=== PATIENT | female | born 2000 | race African-American/Black ===

== ENCOUNTER 2020-12-19 09:51 | Emergency (ER) | payer SELFPAY ==
[~2020-12-19] VITALS: Ht 167.6 cm; Wt 70.0 kg
[2020-12-19] MEDS ORDERED: METHOCARBAMOL 500MG TABLET PO ONE (11:15)
[2020-12-19] MEDS ORDERED: ACETAMINOPHEN 325MG TABLET PO ONE (11:15)
[2020-12-19 11:29] LABS: BASOPHILS % 0.6 % (0.0-2.0); EOSINOPHILS % 0.9 % (0.0-5.0); HEMATOCRIT. 41.6 % (36.0-48.0); HEMOGLOBIN. 13.9 g/dL (12.0-16.0); LYMPHOCYTES % 28.1 % (20.0-50.0); MEAN CORPUSCULAR HEMOGLOBIN 29.9 pg (28.0-32.0); MEAN CORPUSCULAR VOLUME 89.4 fL (81.0-99.0); MONOCYTES % 8.1 % (2.0-8.0); NEUTROPHILS % 62.3 % (40.0-76.0); PLATELET 224 x1000/uL (130-400); RED BLOOD CELL COUNT 4.65 mill/uL (4.2-5.4); RED CELL DISTRIBUTION WIDTH 12.7 % (11.6-14.6)
[2020-12-19 11:36] LABS: CHLORIDE 106 mEq/L (98-107)
[2020-12-19 11:39] LABS: HCG SCREEN NEGATIVE
[2020-12-19 13:38] LABS: CLARITY URINE CLOUDY (CLEAR); COLOR URINE YELLOW (YELLOW); KETONES URINE NEGATIVE (NEGATIVE); LEUKOCYTE ESTERASE URINE 2+ (NEGATIVE); NITRITE URINE NEGATIVE (NEGATIVE); OCCULT BLOOD URINE NEGATIVE (NEGATIVE); PH URINE 6.5 (4.5-8.0); PROTEIN URINE NEGATIVE (NEGATIVE); SPECIFIC GRAVITY URINE 1.013 (1.005-1.030); UROBILINOGEN URINE 0.2 E.U./dL (0.2-1.0)
[2020-12-19] MEDS ORDERED: DOXYCYCLINE HYCLATE 100MG CAPSULE PO ONE (14:30)
[2020-12-19] MEDS ORDERED: MORPHINE SULFATE 4 MG/ML CPJ (NOT FOR IM USE) IV ONE (14:30)
[2020-12-19] MEDS ORDERED: CEFTRIAXONE SODIUM 250 MG/VIAL IM ONE (14:30)
[2020-12-19] MEDS ORDERED: METRONIDAZOLE 250MG TABLET PO ONE (14:30)
[2020-12-19] MEDS ORDERED: METR500T MT (14:31)
[2020-12-19] MEDS ORDERED: DOXY150T9 MT (14:31)
[2020-12-19 15:55] VITALS: BP 108/51
[2020-12-20] MEDS ORDERED: ONDA4TAB5 PO (11:29)
== END 2020-12-19 15:56 | disposition home or self-care (01) ==
LOC: ER 10:03
DX: A59.9 Trichomoniasis, unspecified (principal)
CPT/HCPCS: 36415; 80053; 81003; 81025; 84703; 85025; 96372; 99285; J0696; Z7610

== ENCOUNTER 2020-12-20 10:50 | Emergency (ER) | payer SELFPAY ==
[~2020-12-20] VITALS: Ht 172.7 cm; Wt 61.0 kg
[~2020-12-20 10:50] MED LIST: DOXY150T9 MT; METR500T MT
[2020-12-20] MEDS ORDERED: ONDA4TAB5 PO (11:29)
[2020-12-20 11:39] VITALS: BP 118/83
== END 2020-12-20 11:40 | disposition home or self-care (01) ==
LOC: ER 10:50
DX: R10.31 Right lower quadrant pain (principal); A59.9 Trichomoniasis, unspecified; F12.10 Cannabis abuse, uncomplicated
CPT/HCPCS: 99283

== ENCOUNTER 2020-12-21 10:23 | Inpatient (IN) | payer SELFPAY ==
[~2020-12-21] VITALS: Ht 165.1 cm; Wt 72.6 kg
[~2020-12-21 10:23] MED LIST changes: +ONDA4TAB5 PO
[2020-12-21] MEDS ORDERED: KETOROLAC 30MG/ML VIAL IV STA (11:27)
[2020-12-21] MEDS ORDERED: SODIUM CHLORIDE 0.9% 1,000 ML IV ONE (11:30)
[2020-12-21] MEDS ORDERED: CEFTRIAXONE SODIUM 500 MG/VIAL IM ONE (11:30)
[2020-12-21 12:07] LABS: BASOPHILS % 0.4 % (0.0-2.0); EOSINOPHILS % 0.4 % (0.0-5.0); HEMOGLOBIN. 13.5 g/dL (12.0-16.0); MEAN CORPUSCULAR HEMOGLOBIN 29.3 pg (28.0-32.0); MEAN CORPUSCULAR VOLUME 88.9 fL (81.0-99.0); MEAN PLATELET VOLUME 8.9 fl (7.4-10.4); MONOCYTES % 6.7 % (2.0-8.0); NEUTROPHILS % 62.5 % (40.0-76.0); PLATELET 248 x1000/uL (130-400); RED BLOOD CELL COUNT 4.61 mill/uL (4.2-5.4); RED CELL DISTRIBUTION WIDTH 12.7 % (11.6-14.6)
[2020-12-21] MEDS ORDERED: METRONIDAZOLE 500MG TABLET PO ONE (12:15)
[2020-12-21 12:25] LABS: CHLORIDE 103 mEq/L (98-107)
[2020-12-21 12:43] LABS: HCG SCREEN NEGATIVE
[2020-12-21] MEDS ORDERED: DOXYCYCLINE HYCLATE 100 MG/VIAL IV ONE (12:45)
[2020-12-21] MEDS ORDERED: DOXYCYCLINE 100MG in DEXTROSE 5% WATER 100ML IV SCH (13:00)
[2020-12-21] MEDS ORDERED: POTASSIUM CHLORIDE 20MEQ TABLET SR PO ONE (13:15)
[2020-12-21] MEDS ORDERED: ONDANSETRON HCL 4MG/2ML INJ IV STA (15:32)
[2020-12-21] MEDS ORDERED: MORPHINE SULFATE 4 MG/ML CPJ (NOT FOR IM USE) IV STA (15:32)
[2020-12-21 16:36] LABS: CLARITY URINE CLEAR (CLEAR); COLOR URINE YELLOW (YELLOW); KETONES URINE TRACE (NEGATIVE); LEUKOCYTE ESTERASE URINE NEGATIVE (NEGATIVE); NITRITE URINE NEGATIVE (NEGATIVE); OCCULT BLOOD URINE NEGATIVE (NEGATIVE); PH URINE 6.5 (4.5-8.0); PROTEIN URINE NEGATIVE (NEGATIVE); SPECIFIC GRAVITY URINE 1.009 (1.005-1.030); UROBILINOGEN URINE 0.2 E.U./dL (0.2-1.0)
[2020-12-21] MEDS ORDERED: CEFAZOLIN 2000MG PREMIX 50 ML IV NR (17:15)
[2020-12-21] MEDS ORDERED: DEXT 5%/LACTATED RINGERS 1,000 ML IV SCH (17:15)
[2020-12-21 18:05] LABS: INR 1.1; PARTIAL THROMBOPLASTIN TIME 29.3 sec (23.4-31.0); PROTHROMBIN TIME 11.6 sec (9.6-11.0)
[2020-12-21] MEDS ORDERED: MORPHINE SULFATE/PF 1MG/ML 10ML AMP ONE (20:45)
[2020-12-21] MEDS ORDERED: ROCURONIUM BROMIDE 10MG/ML VIAL 5ML IV ONE (20:48)
[2020-12-21] MEDS ORDERED: GLYCOPYRROLATE 0.2 MG/ML 2ML VIAL ONE ×2 (21:01→21:50)
[2020-12-21] MEDS ORDERED: DEXAMETHASONE 4MG/ML 1ML VIAL ONE (21:07)
[2020-12-21] MEDS ORDERED: ONDANSETRON HCL 4MG/2ML INJ ONE (21:08)
[2020-12-21] MEDS ORDERED: NEOSTIGMINE METHYLSULFATE 1MG/ML 10 ML VIAL ONE (21:50)
[2020-12-21] MEDS ORDERED: LABETALOL 5MG/ML SYR 20 MG/4 ML SYRINGE IV PRN (22:00)
[2020-12-21] MEDS ORDERED: MEPERIDINE HCL/PF 25MG/ML CPJ IV PRN (22:00)
[2020-12-21] MEDS ORDERED: ONDANSETRON HCL 4MG/2ML INJ IV PRN ×2 (22:00→22:15)
[2020-12-21] MEDS ORDERED: HYDROMORPHONE HCL/PF 2MG/ML CPJ IV PRN (22:00)
[2020-12-21] MEDS ORDERED: NALOXONE HCL 0.4 MG/ML 1ML VIAL ONE (22:07)
[2020-12-21] MEDS ORDERED: IBUPROFEN 400MG TABLET PO PRN (22:15)
[2020-12-21] MEDS ORDERED: DIPHENHYDRAMINE 25MG CAPSULE PO PRN (22:15)
[2020-12-21] MEDS ORDERED: IBUPROFEN 800MG TABLET PO PRN (22:15)
[2020-12-21] MEDS ORDERED: KETOROLAC 30MG/ML VIAL IM ONE (22:15)
[2020-12-21] MEDS ORDERED: HYDROCODONE/ACETAMINOPHEN 5/325MG TABLET PO PRN (22:15)
[2020-12-21] MEDS ORDERED: BISACODYL 10MG SUPP PR PRN (23:00)
[2020-12-22] VITALS: BP 111/53
[2020-12-22] MEDS: DEXT 5%/LACTATED RINGERS 1,000 ML IV SCH ×3 (01:15→22:15)
[2020-12-22 04:00] VITALS: BP 100/52
[2020-12-22] MEDS ORDERED: ONDANSETRON HCL 4MG/2ML INJ IV PRN (04:30)
[2020-12-22 06:30] LABS: *AMPHETAMINES SCREEN URINE NEGATIVE (NEGATIVE)
[2020-12-22 06:31] LABS: *BARBITURATES SCREEN URINE NEGATIVE (NEGATIVE); *BENZODIAZEPINES SCREEN URINE NEGATIVE (NEGATIVE); *COCAINE SCREEN URINE NEGATIVE (NEGATIVE)
[2020-12-22 06:33] LABS: METHADONE URINE SCREEN NEGATIVE (NEGATIVE); PHENCYCLIDINE URINE SCREEN NEGATIVE (NEGATIVE)
[2020-12-22 06:35] LABS: CANNABINOID URINE SCREEN PRESUMTIVE POSITIVE (NEGATIVE); OPIATES URINE SCREEN PRESUMTIVE POSITIVE (NEGATIVE)
[2020-12-22 06:47] LABS: HEMATOCRIT. 33.7 % (36.0-48.0); MEAN CORPUSCULAR HEMOGLOBIN 29.4 pg (28.0-32.0); MEAN CORPUSCULAR VOLUME 89.9 fL (81.0-99.0); MEAN PLATELET VOLUME 8.9 fl (7.4-10.4); PLATELET 197 x1000/uL (130-400); RED BLOOD CELL COUNT 3.75 mill/uL (4.2-5.4); RED CELL DISTRIBUTION WIDTH 12.5 % (11.6-14.6)
[2020-12-22 08:00] VITALS: BP 100/64
[2020-12-22] MEDS ORDERED: POTASSIUM CHLORIDE INJ 40 MEQ in DEXT 5% WATER 500 ML IV SCH (09:00)
[2020-12-22] MEDS: SIMETHICONE 80MG TABLET CHEW PO SCH ×4 (09:35→21:17)
[2020-12-22] MEDS: METOCLOPRAMIDE HCL 10MG/2ML VIAL IV SCH ×3 (12:24→23:49)
[2020-12-22 16:00] VITALS: BP 101/51
[2020-12-22 17:20] LABS: PLATELET ESTIMATE NORMAL
[2020-12-22 20:00] VITALS: BP 85/48
[2020-12-22 20:30] VITALS: BP 92/60
[2020-12-22] MEDS: DOCUSATE SODIUM 100MG CAPSULE PO SCH ×2 (20:58→21:18)
[2020-12-23] VITALS: BP 94/56
[2020-12-23] MEDS: METOCLOPRAMIDE HCL 10MG/2ML VIAL IV SCH ×4 (05:36→23:00)
[2020-12-23 07:37] LABS: CHLORIDE 108 mEq/L (98-107)
[2020-12-23 08:00] VITALS: BP 95/52
[2020-12-23] MEDS: SIMETHICONE 80MG TABLET CHEW PO SCH ×4 (08:55→21:09)
[2020-12-23] MEDS ORDERED: POTASSIUM CHLORIDE 20MEQ TABLET SR PO NR (09:00)
[2020-12-23] MEDS ORDERED: METRONIDAZOLE 500MG TABLET PO SCH (09:00)
[2020-12-23 09:06] LABS: NEISSERIA GONORRHOEAE NAA Negative (Negative)
[2020-12-23] MEDS: IBUPROFEN 600MG TABLET PO PRN (10:58)
[2020-12-23 12:00] VITALS: BP 95/59
[2020-12-23 16:00] VITALS: BP 80/45
[2020-12-23 20:00] VITALS: BP 95/55
[2020-12-23] MEDS: DOCUSATE SODIUM 100MG CAPSULE PO SCH ×2 (20:58→21:09)
[2020-12-24] VITALS: BP 90/44
[2020-12-24 04:00] VITALS: BP 92/45
[2020-12-24] MEDS: METOCLOPRAMIDE HCL 10MG/2ML VIAL IV SCH ×2 (05:37→13:21)
[2020-12-24 08:00] VITALS: BP 96/62
[2020-12-24] MEDS: SIMETHICONE 80MG TABLET CHEW PO SCH ×2 (09:15→13:22)
[2020-12-24] MEDS: IBUPROFEN 600MG TABLET PO PRN (09:15)
[2020-12-24 12:00] VITALS: BP 97/55
[2020-12-24 16:00] VITALS: BP 93/53
[2020-12-24 17:11] VITALS: BP 97/62
== END 2020-12-24 17:20 | disposition home or self-care (01) | DRG 513 ==
LOC: ER 12:19 → 6EST 15:36 → SUPCPDRO 17:07 → ENRESERV 19:49 → ER 20:46
PROVIDERS: ADMIT Specialist; ATTEND Specialist
PROC: 0UB00ZX Excision of Right Ovary, Open Approach, Diagnostic (ICD-10-PCS; principal; 2020-12-21)
PROC: 0UB00ZZ Excision of Right Ovary, Open Approach (ICD-10-PCS; 2020-12-21)
PROC: 0U900ZZ Drainage of Right Ovary, Open Approach (ICD-10-PCS; 2020-12-21)
DX: N83.511 Torsion of right ovary and ovarian pedicle (principal); A59.9 Trichomoniasis, unspecified; E87.6 Hypokalemia; B00.9 Herpesviral infection, unspecified; F12.10 Cannabis abuse, uncomplicated; N83.201 Unspecified ovarian cyst, right side; Z20.822 Contact with and (suspected) exposure to COVID-19; Z79.899 Other long term (current) drug therapy
CPT/HCPCS: 36415; 76830; 76856; 80048; 80053; 80305; 81003; 84703; 85025; 86592; 86762; 86850; 86900; 86920; 87210; 87426; 87491; 87591; 88108; 88304; 88305; 88312; 99285; J0696; J1100; J1885; J2270; J2274; J2310; J2405; J2710; J2765; J3480; J3490; J7030; J7060; J7121

== ENCOUNTER 2020-12-31 13:30 | Emergency (ER) | payer MEDICAID ==
[~2020-12-31] VITALS: Ht 172.7 cm; Wt 73.0 kg
[2020-12-31 13:38] VITALS: BP 92/48
== END 2020-12-31 16:11 | disposition home or self-care (01) ==
LOC: ER 13:30
DX: Z48.01 Encounter for change or removal of surgical wound dressing (principal); Z90.710 Acquired absence of both cervix and uterus
CPT/HCPCS: 99282

== ENCOUNTER 2021-06-25 20:02 | Emergency (ER) | payer MEDICAID ==
[~2021-06-25] VITALS: Ht 172.7 cm; Wt 79.0 kg
[2021-06-25 20:16] VITALS: BP 109/53
[2021-06-25 21:30] LABS: CLARITY URINE CLEAR (CLEAR); COLOR URINE YELLOW (YELLOW); KETONES URINE 3+ (NEGATIVE); LEUKOCYTE ESTERASE URINE NEGATIVE (NEGATIVE); NITRITE URINE NEGATIVE (NEGATIVE); OCCULT BLOOD URINE NEGATIVE (NEGATIVE); PROTEIN URINE TRACE (NEGATIVE); SPECIFIC GRAVITY URINE 1.031 (1.005-1.030)
[2021-06-25 21:33] LABS: UCG SCREEN NEGATIVE
[2021-06-25] MEDS ORDERED: LORAZEPAM 0.5MG TABLET PO ONE (22:00)
== END 2021-06-25 22:27 | disposition home or self-care (01) ==
LOC: ER 20:02
DX: R00.2 Palpitations (principal); F41.9 Anxiety disorder, unspecified; F17.210 Nicotine dependence, cigarettes, uncomplicated
CPT/HCPCS: 81003; 81025; 93005; 99284

== ENCOUNTER 2021-08-13 21:03 | Emergency (ER) | payer MEDICAID ==
[~2021-08-13] VITALS: Ht 172.7 cm; Wt 79.1 kg
[2021-08-13 21:13] VITALS: BP 106/57
[2021-08-13 23:00] LABS: BASOPHILS % 0.6 % (0.0-2.0); EOSINOPHILS % 1.3 % (0.0-5.0); HEMOGLOBIN. 12.6 g/dL (12.0-16.0); LYMPHOCYTES % 34.6 % (20.0-50.0); MEAN CORPUSCULAR HEMOGLOBIN 29.6 pg (28.0-32.0); MEAN CORPUSCULAR VOLUME 91.9 fL (81.0-99.0); MEAN PLATELET VOLUME 8.7 fl (7.4-10.4); MONOCYTES % 13.5 % (2.0-8.0); PLATELET 206 x1000/uL (130-400); RED BLOOD CELL COUNT 4.25 mill/uL (4.2-5.4); RED CELL DISTRIBUTION WIDTH 13.6 % (11.6-14.6)
[2021-08-13 23:06] LABS: CHLORIDE 105 mEq/L (98-107)
[2021-08-13 23:13] LABS: HCG SCREEN NEGATIVE
[2021-08-15] MEDS ORDERED: LORA-249 MT (21:32)
== END 2021-08-14 01:08 | disposition left against medical advice (07) ==
LOC: ER 21:03
DX: N93.9 Abnormal uterine and vaginal bleeding, unspecified (principal); F12.10 Cannabis abuse, uncomplicated; Z98.890 Other specified postprocedural states
CPT/HCPCS: 36415; 76830; 76856; 80053; 84703; 85025; 99284

== ENCOUNTER 2021-08-15 16:26 | Emergency (ER) | payer MEDICAID ==
[~2021-08-15] VITALS: Ht 172.7 cm; Wt 76.0 kg
[2021-08-15 16:36] VITALS: BP 106/49
[2021-08-15 19:47] LABS: CLARITY URINE CLEAR (CLEAR); COLOR URINE YELLOW (YELLOW); KETONES URINE 1+ (NEGATIVE); LEUKOCYTE ESTERASE URINE NEGATIVE (NEGATIVE); NITRITE URINE NEGATIVE (NEGATIVE); OCCULT BLOOD URINE 1+ (NEGATIVE); PH URINE 6.5 (4.5-8.0); PROTEIN URINE NEGATIVE (NEGATIVE); SPECIFIC GRAVITY URINE 1.017 (1.005-1.030); UROBILINOGEN URINE 0.2 E.U./dL (0.2-1.0)
[2021-08-15 20:12] LABS: BASOPHILS % 0.4 % (0.0-2.0); EOSINOPHILS % 1.7 % (0.0-5.0); HEMATOCRIT. 39.9 % (36.0-48.0); HEMOGLOBIN. 13.2 g/dL (12.0-16.0); LYMPHOCYTES % 34.8 % (20.0-50.0); MEAN CORPUSCULAR HEMOGLOBIN 30.2 pg (28.0-32.0); MEAN CORPUSCULAR VOLUME 91.1 fL (81.0-99.0); MEAN PLATELET VOLUME 8.7 fl (7.4-10.4); MONOCYTES % 9.9 % (2.0-8.0); NEUTROPHILS % 53.2 % (40.0-76.0); PLATELET 216 x1000/uL (130-400); RED BLOOD CELL COUNT 4.38 mill/uL (4.2-5.4); RED CELL DISTRIBUTION WIDTH 13.6 % (11.6-14.6)
[2021-08-15 20:21] LABS: CHLORIDE 108 mEq/L (98-107)
[2021-08-15] MEDS ORDERED: LORA-249 MT (21:32)
== END 2021-08-15 21:40 | disposition home or self-care (01) ==
LOC: ER 16:48
DX: R55 Syncope and collapse (principal); R42 Dizziness and giddiness
CPT/HCPCS: 36415; 80053; 81003; 81025; 85025; 93005; 99284

== ENCOUNTER 2021-08-19 14:29 | Emergency (ER) | payer MEDICAID ==
[~2021-08-19] VITALS: Ht 172.7 cm; Wt 76.5 kg
[~2021-08-19 14:29] MED LIST changes: +LORA-249 MT
[2021-08-19 16:15] LABS: CLARITY URINE CLEAR (CLEAR); COLOR URINE YELLOW (YELLOW); KETONES URINE 3+ (NEGATIVE); LEUKOCYTE ESTERASE URINE NEGATIVE (NEGATIVE); NITRITE URINE NEGATIVE (NEGATIVE); OCCULT BLOOD URINE 2+ (NEGATIVE); PH URINE 6.5 (4.5-8.0); PROTEIN URINE NEGATIVE (NEGATIVE); SPECIFIC GRAVITY URINE 1.024 (1.005-1.030)
[2021-08-19] MEDS ORDERED: SODIUM CHLORIDE 0.9% 1,000 ML IV ONE (16:30)
[2021-08-19] MEDS ORDERED: MECLIZINE 25MG TABLET PO ONE (16:30)
[2021-08-19 16:40] VITALS: BP 93/55
[2021-08-19 17:02] LABS: BASOPHILS % 0.9 % (0.0-2.0); EOSINOPHILS % 0.8 % (0.0-5.0); HEMATOCRIT. 40.2 % (36.0-48.0); HEMOGLOBIN. 13.5 g/dL (12.0-16.0); LYMPHOCYTES % 27.6 % (20.0-50.0); MEAN CORPUSCULAR HEMOGLOBIN 30.3 pg (28.0-32.0); MEAN CORPUSCULAR VOLUME 90.2 fL (81.0-99.0); MEAN PLATELET VOLUME 9.2 fl (7.4-10.4); MONOCYTES % 6.4 % (2.0-8.0); NEUTROPHILS % 64.3 % (40.0-76.0); PLATELET 239 x1000/uL (130-400); RED BLOOD CELL COUNT 4.46 mill/uL (4.2-5.4); RED CELL DISTRIBUTION WIDTH 13.5 % (11.6-14.6)
[2021-08-19 17:17] LABS: CHLORIDE 105 mEq/L (98-107)
[2021-08-19 17:24] LABS: ETHANOL BLOOD < 10 mg/dL
[2021-08-19 17:31] LABS: B-HCG QUANTITATIVE < 1 mIU/mL (<3)
[2021-08-19 17:32] LABS: HCG SCREEN NEGATIVE
[2021-08-19 18:12] LABS: *AMPHETAMINES SCREEN URINE NEGATIVE (NEGATIVE); *BARBITURATES SCREEN URINE NEGATIVE (NEGATIVE); *BENZODIAZEPINES SCREEN URINE NEGATIVE (NEGATIVE); *COCAINE SCREEN URINE NEGATIVE (NEGATIVE); METHADONE URINE SCREEN NEGATIVE (NEGATIVE)
[2021-08-19 18:13] LABS: OPIATES URINE SCREEN NEGATIVE (NEGATIVE); PHENCYCLIDINE URINE SCREEN NEGATIVE (NEGATIVE)
[2021-08-19 18:23] LABS: CANNABINOID URINE SCREEN PRESUMTIVE POSITIVE (NEGATIVE)
== END 2021-08-19 19:02 | disposition home or self-care (01) ==
LOC: ER 14:29
DX: R42 Dizziness and giddiness (principal)
CPT/HCPCS: 36415; 70450; 74176; 80053; 80305; 80320; 81003; 84484; 84702; 84703; 85025; 93005; 96365; 99285; J7030; J8597; G0480

== ENCOUNTER 2023-03-07 19:24 | Emergency (ER) | payer MEDICAID, OTHER ==
[~2023-03-07] VITALS: Ht 175.3 cm; Wt 81.0 kg
[2023-03-07 19:35] VITALS: O2SAT 100
[2023-03-07 20:19] LABS: DIFFERENTIAL COMMENT 1; HEMATOCRIT. 40.3 % (36.0-48.0); HEMOGLOBIN. 13.1 g/dL (12.0-16.0); MEAN CORPUSCULAR HEMOGLOBIN 29.1 pg (28.0-32.0); MEAN CORPUSCULAR HGB CONC 32.6 g/dL (31.0-37.0); MEAN CORPUSCULAR VOLUME 89.4 fL (81.0-99.0); PLATELET 225 x1000/uL (130-400); RED BLOOD CELL COUNT 4.51 mill/uL (4.2-5.4); RED CELL DISTRIBUTION WIDTH 13.3 % (11.6-14.6); WHITE BLOOD COUNT 5.1 x1000/uL (4.5-11.0)
[2023-03-07 20:24] LABS: CHLORIDE 105 mEq/L (98-107); INDEX HEMOLYSI 1 (1-3); INDEX ICTERIC 1 (1-4); INDEX LIPEMIC 1 (1-3); POTASSIUM 3.8 mEq/L (3.5-5.1); SODIUM 137 mEq/L (136-145)
[2023-03-07 20:36] LABS: ALANINE AMINOTRANSFERASE 28 IU/L (13-61); ALBUMIN 4.4 g/dL (3.4-5.0); ASPARTATE AMINOTRANSFERASE 19 IU/L (15-37); BILIRUBIN TOTAL 0.8 mg/dL (0.1-1.0); CALCIUM 9.2 mg/dL (8.5-10.1); CARBON DIOXIDE 28 mEq/L (21-32); CREATININE 0.8 mg/dL (0.6-1.3); GLUCOSE 87 mg/dL (70-105); PROTEIN TOTAL 8.3 g/dL (6.0-8.3); UREA NITROGEN BLOOD 8 mg/dL (7-21)
[2023-03-07 20:49] LABS: PLATELET ESTIMATE NORMAL
[2023-03-08 00:38] LABS: CLARITY URINE CLEAR (CLEAR); COLOR URINE YELLOW (YELLOW); GLUCOSE URINE NEGATIVE (NEGATIVE); KETONES URINE 2+ (NEGATIVE); LEUKOCYTE ESTERASE URINE NEGATIVE (NEGATIVE); NITRITE URINE NEGATIVE (NEGATIVE); OCCULT BLOOD URINE 3+ (NEGATIVE); PH URINE 6.5 (4.5-8.0); PROTEIN URINE NEGATIVE (NEGATIVE); UROBILINOGEN URINE 0.2 E.U./dL (0.2-1.0)
[2023-03-08 00:41] LABS: BACTERIA URINE NONE SEEN; WBC URINE 0-2 /hpf (0-2); YEAST URINE NONE SEEN
[2023-03-08] MEDS ORDERED: KETOROLAC 15MG/ML VIAL IM ONE (02:00)
[2023-03-08 02:02] VITALS: BP 117/71
[2023-03-08 02:03] VITALS: PULSE 79; RESP 18; TEMP 98.6
[2023-03-08 03:06] LABS: SQUAMOUS EPITHELIAL CELL URINE FEW /lpf (RARE/1+)
[2023-03-08 03:08] LABS: RBC URINE 0-2 /hpf (0-2)
== END 2023-03-08 02:04 | disposition home or self-care (01) ==
LOC: ER 19:24
DX: M25.512 Pain in left shoulder (principal); F41.9 Anxiety disorder, unspecified; F12.10 Cannabis abuse, uncomplicated
CPT/HCPCS: 80053; 81025; 83690; 85025; 36415; 99283; 81003; 96372; J1885; Z7610

== ENCOUNTER 2024-10-14 03:35 | Emergency (ER) | payer MEDICAID, OTHER ==
[~2024-10-14] VITALS: Ht 172.7 cm; Wt 84.0 kg
[2024-10-14 03:53] VITALS: O2SAT 100
[2024-10-14 04:21] LABS: CLARITY URINE CLEAR (CLEAR); COLOR URINE YELLOW (YELLOW); GLUCOSE URINE NEGATIVE (NEGATIVE); KETONES URINE NEGATIVE (NEGATIVE); LEUKOCYTE ESTERASE URINE NEGATIVE (NEGATIVE); NITRITE URINE NEGATIVE (NEGATIVE); OCCULT BLOOD URINE NEGATIVE (NEGATIVE); PH URINE 5.5 (4.5-8.0); PROTEIN URINE NEGATIVE (NEGATIVE); SPECIFIC GRAVITY URINE 1.023 (1.005-1.030); UROBILINOGEN URINE 0.2 E.U./dL (0.2-1.0)
[2024-10-14] MEDS ORDERED: DOXY-461 MT (04:44)
[2024-10-14] MEDS ORDERED: METR-167 MT (04:44)
[2024-10-14] MEDS: LIDOCAINE HCL/PF 1% 10 MG/ML 5ML VIAL INFIL ONE (04:45)
[2024-10-14] MEDS: CEFTRIAXONE SODIUM 500MG VIAL IM ONE (05:36)
[2024-10-14] MEDS: LIDOCAINE HCL/PF 1% 10 MG/ML 5ML VIAL INFIL NR (05:37)
[2024-10-14] MEDS: DOXYCYCLINE HYCLATE 100MG CAPSULE PO ONE (05:37)
[2024-10-14] MEDS ORDERED: LIDOCAINE HCL/PF 1% 10 MG/ML 5ML VIAL INFIL NR (05:45)
[2024-10-14 06:04] VITALS: BP 92/58; PULSE 59; RESP 13; TEMP 36.5; O2SAT 100
== END 2024-10-14 06:08 | disposition home or self-care (01) ==
LOC: ER 03:35
DX: R30.0 Dysuria (principal); Z20.2 Contact with and (suspected) exposure to infections with a predominantly sexual mode of transmission; F12.90 Cannabis use, unspecified, uncomplicated; Z79.899 Other long term (current) drug therapy
CPT/HCPCS: 99283; 81003; 81025; 96372; J0696; J2003

== ENCOUNTER 2024-11-04 01:14 | Emergency (ER) | payer MEDICAID ==
[~2024-11-04] VITALS: Ht 172.7 cm; Wt 82.0 kg
[~2024-11-04 01:14] MED LIST changes: +DOXY-461 MT; +METR-167 MT
[2024-11-04 01:25] VITALS: O2SAT 98
[2024-11-04] MEDS: KETOROLAC 15MG/ML VIAL IM ONE (02:20)
[2024-11-04] MEDS: BACITRACIN ZINC OINT UDPKT TOP ONE (02:30)
[2024-11-04] MEDS: LIDOCAINE HCL/PF 1% 10 MG/ML 5ML VIAL INFIL ONE (02:30)
[2024-11-04] MEDS: TETANUS, DIPHTHERIA, PERTUSSIS VAC/PF 0.5ML (>10YR OLD) IM ONE (03:06)
[2024-11-04] MEDS ORDERED: ONDA4TAB50 MT (03:21)
[2024-11-04] MEDS ORDERED: AMOX1TAB16 MT (03:21)
[2024-11-04] MEDS ORDERED: SULF1TAB48 MT (03:21)
[2024-11-04 03:45] VITALS: BP 103/60; PULSE 89; RESP 20; O2SAT 100
== END 2024-11-04 03:48 | disposition home or self-care (01) ==
LOC: ER 01:14
DX: N75.1 Abscess of Bartholin's gland (principal); F12.10 Cannabis abuse, uncomplicated; Z79.899 Other long term (current) drug therapy
CPT/HCPCS: 81025; 90715; 56420; 90471; 96372; 99284; J1885; J2003; Z7610 ×3

== ENCOUNTER 2024-12-07 00:01 | Emergency (ER) | payer MEDICAID ==
[~2024-12-07] VITALS: Ht 167.6 cm; Wt 82.0 kg
[~2024-12-07 00:01] MED LIST changes: +AMOX1TAB16 MT; +ONDA4TAB50 MT; +SULF1TAB48 MT
[2024-12-07 00:05] VITALS: O2SAT 97
[2024-12-07 00:10] VITALS: BP 107/60; PULSE 60; RESP 16; TEMP 36.8
== END 2024-12-07 01:30 | disposition left against medical advice (07) ==
LOC: ER 00:01
DX: R07.9 Chest pain, unspecified (principal); Z53.21 Procedure and treatment not carried out due to patient leaving prior to being seen by health care provider
CPT/HCPCS: 93005

== ENCOUNTER 2025-01-28 03:10 | Emergency (ER) | payer OTHER, MEDICAID ==
[~2025-01-28] VITALS: Ht 175.3 cm; Wt 84.6 kg
[2025-01-28 03:11] VITALS: O2SAT 99
[2025-01-28 03:12] VITALS: BP 110/59; PULSE 68; RESP 16; TEMP 36.8; O2SAT 100
[2025-01-28] MEDS: ACETAMINOPHEN 500MG TABLET PO ONE (04:12)
[2025-01-28] MEDS ORDERED: IBUP-1455 MT (05:06)
== END 2025-01-28 05:33 | disposition home or self-care (01) ==
LOC: ER 03:51
DX: S09.8XXA Other specified injuries of head, initial encounter (principal); S60.221A Contusion of right hand, initial encounter; F12.90 Cannabis use, unspecified, uncomplicated; V89.2XXA Person injured in unspecified motor-vehicle accident, traffic, initial encounter; W22.10XA Striking against or struck by unspecified automobile airbag, initial encounter; Y93.89 Activity, other specified; Y92.410 Unspecified street and highway as the place of occurrence of the external cause; Y99.8 Other external cause status
CPT/HCPCS: 81025; 99284